=== PATIENT | male | born 1990 | race Caucasian/White ===

== ENCOUNTER 2025-04-23 03:40 | Emergency (ER) | payer SELFPAY ==
[2025-04-23 03:45] VITALS: BP 152/82
[2025-04-23 03:50] VITALS: BMI 32.9
--- NOTE | 2025-04-23 04:01 | ED.GENMED ---
History of Present Illness
General
Chief Complaint: Anxiety
Source: patient
Exam Limitations: none
Time Seen by Provider: 04/23/25 03:59
Nursing documentation reviewed up to this point in time: agreed with
History of Present Illness
History of Present Illness:
Note:
CHIEF COMPLAINT(S)
Anxiety
HISTORY OF PRESENT ILLNESS
The patient is a 35-year-old male who presented with anxiety and muscle cramps in his legs. The symptoms began after he was abruptly after he was awakened by his daughter crying during the night. He reports that he woke up feeling panicked, although
reassured by his that everything was fine and that his daughter was okay. He started to breath rapidly and feel panic symptoms and he experienced severe cramping in both legs, likely due to dehydration, as he noted, 'I think I need to drink
more.' The patient mentioned having consumed an iced tea, which he rarely drinks, around 3 or 4 PM the day before. He wonders if components such as caffeine or sugars could be contributing factors. The feeling of anxiety persisted, despite efforts
to relax and alleviate symptoms over a 10-minute period. He also recently completed a prednisone taper two days ago for what was diagnosed as eczema on his buttocks; the rash has since returned to its normal skin color. He notes an increasing trend
of anxiety over the past three years, attributed to stressors such as moving and financial concerns. This is the first time he has sought medical help for anxiety, and he has never been on medication for this condition. He describes no current chest
pain, palpitations, or dizziness but seeks an electrocardiogram for reassurance due to a history of a hiatal hernia diagnosed after an upper endoscopy three years ago which was diagnosed because he had chest pain. Patient denies suicidal and
homicidal ideation. Patient denies any thoughts of self-harm. Patient does not currently follow with a psychiatrist and does not take any medications.
SOCIAL DETERMINANTS AFFECTING HEALTH
The patient reports financial stress after a recent move, contributing to his anxiety. He is actively involved in a [employer] group which provides significant mental support.
General: Patient is well appearing and in no acute distress; non-toxic
Skin: Warm and dry, no rashes or lesions
Head: Normocephalic, atraumatic
Eyes: Sclera non-icteric. EOMs intact.
Cardiac: Regular rate and rhythm, no murmurs
Peripheral Vascular: No lower extremity swelling or edema
Pulm: Normal respiratory effort, no wheezes, rales, or rhonchi
Abdomen: No abdominal tenderness to palpation
Neuro: CN II-XII intact, no focal neurologic deficits.
Psychiatric: Appropriate mood and affect.
PLAN
- Perform blood tests to rule out metabolic causes such as electrolyte imbalances
- Conduct an electrocardiogram for cardiac reassurance
- Offer crisis team consultation for further psychiatric support, although the patient declined therapy
- Discussed the importance of follow-up with a primary care provider or psychiatrist as needed if symptoms persist or worsen
DIFFERENTIAL DIAGNOSIS
The Differential Diagnosis includes, in no particular order and is not limited to:
- Generalized Anxiety Disorder
- Adjustment Disorder with Anxiety
- Substance-Induced Anxiety Disorder (e.g., due to caffeine)
- Panic Disorder
- Hyperthyroidism
- Electrolyte Imbalance
- Hiatal Hernia
- Cardiac Arrhythmias
- Pheochromocytoma
- Medication Side Effects (e.g., prednisone-associated anxiety)
The patient is a 35-year-old male who presented with anxiety upon waking up in the middle of the night. He was awoken by his daughter crying which concerned him. He does have a history of increasing anxiety over the past few years due to financial
struggles however he reports that is never this severe before. Upon arriving to emergency department, his symptoms have been resolving and he has steadily felt less anxious. Patient had blood work done his CBC and CMP is unremarkable. CPK is
normal. Patient does note that he recently finished a course of prednisone and denies that he thinks this contributed to his anxiety past few days. Patient is never seen a psychiatrist for his symptoms. I did recommend follow-up with a
psychiatrist. Did offer crisis services the patient however patient is declining this at this time. Patient stable for discharge
Review of Systems
Review of Systems
All Other Systems: ROS reviewed and negative except as documented in HPI and ROS
Phy Exam
Physical Exam
Physical Exam:
see hpi
Course
Orders/Labs/Results
Orders:
Orders
04/23/25 04:04
EKG [Electrocardiogram (*1)] Urgent
Reason for Study: Palpitations
Other Reason for Exam: NOt having palpitations, feels a sense of panic,
04/23/25 04:05
EKG- Treatment ONCE
04/23/25 04:44
CPK [Creatine Phosphokinase] Urgent
Complete Blood Count/With Diff Urgent
Comprehensive Metabolic Panel Urgent
Abnormal Lab Results
04/23/25
04:44
MPV 11.0 H fL
(7.4-10.4)
Abs Immat Gran (auto) 0.1 H 10^3/uL
(0-0.05)
Immature Gran % 0.8 H %
(0-0.5)
Glucose 100 H mg/dl
(70-99)
AST 16 L U/L
(17-59)
04/23/25 04:44
04/23/25 04:44
Vital Signs
Initial and Last Documented VS:
Initial Vital Signs
Temp Pulse Resp BP Pulse Ox
97.9 F 70 18 152/82 100
04/23/25 03:45 04/23/25 03:45 04/23/25 03:45 04/23/25 03:45 04/23/25 03:45
Last Documented Vital Signs
Temp Pulse Resp BP Pulse Ox
97.9 F 55 13 132/84 97
04/23/25 03:45 04/23/25 06:15 04/23/25 06:15 04/23/25 06:00 04/23/25 06:15
*Critical Care Note
Total Time (30-74mins, 75-104mins- exclusive of procedures): Not Applicable
ED Attending Note
-
Portions of this chart may have been created with voice recognition software.� Occasional wrong word or��sound alike� substitutions may have occurred due to the inherent limitations of voice recognition software.
Discharge Plan
Departure
Patient Disposition: Home (Routine Discharge)
Date of Disposition: 04/23/25
Time of Disposition: 06:36
Patient with high blood pressure during this ER visit?: Yes
Condition: Good
Discharge Problem:
Anxiety, Adverse effect of prednisone
Instructions: Anxiety, Adult (DC), Prednisone, BLOOD PRESSURE
Referrals:
Mary Bruno MD [Family Provider, Internal Medicine]
Heidy Jane MD [Active, Psychiatry] - Call in 1-3 days for appt
Activity Restrictions/Additional Instructions:
As discussed, your blood work is unremarkable. Your EKG shows normal sinus rhythm with no concerning changes.
PLEASE RETURN EMERGENCY DEPARTMENT SHOULD YOU DEVELOP SUICIDAL OR HOMICIDAL IDEATIONS, CHEST PAIN, SHORTNESS OF BREATH, DIZZINESS, LIGHTHEADEDNESS, PALPITATIONS, THOUGHTS OF SELF-HARM, OR ANY OTHER SIGNS OR SYMPTOMS WORRISOME TO YOU
Interventions
Interventions:
*Risk Screen - Suicide Last Done: 04/23/25 03:50
*General Assessment Last Done: 04/23/25 03:50
*Neglect/Abuse Screening Last Done: 04/23/25 03:50
*ED- Fall Risk Assessment Last Done: 04/23/25 03:50
*ED COVID-19 Vaccine History Last Done: 04/23/25 03:50
ED-Psychological Assessment Last Done: 04/23/25 03:50
Discharge Date and Time
Print Language: CZECH
[2025-04-23 04:11] VITALS: BP 142/90
[2025-04-23 05:00] VITALS: BP 137/76
[2025-04-23 06:00] VITALS: BP 132/84
[2025-04-23 06:02] LABS: % Basophils 0.9 % (0-2); % Eosinophils 3.5 % (0-6); % Immature Granulocytes 0.8 % (0-0.5); % Lymphocytes 34.3 % (20.5-51.1); % Monocytes 7.7 % (1.7-9.3); % Neutrophils 52.8 % (42.2-75.2); Absolute Basophils 0.1 10^3/uL (0-0.2); Absolute Eosinophils 0.3 10^3/uL (0-0.7); Absolute Immature Granulocytes 0.1 10^3/uL (0-0.05); Absolute Lymphocytes 2.5 10^3/uL (1.2-3.4); Absolute Monocytes 0.6 10^3/uL (0.1-0.6); Absolute Neutrophils 3.9 10^3/uL (1.4-6.5); Hematocrit 44.4 % (39.0-52.0); Hemoglobin 15.5 g/dL (13.0-18.0); Mean Corp Hgb Conc. 34.9 g/dL (33.0-37.0); Mean Corpuscular Hgb 30.8 pg (27.0-31.0); Mean Corpuscular Volume 88.1 fL (80.0-94.0); Nucleated Red Blood Cells % 0 % (-); Platelet Count 194 10^3/uL (130-400); Red Blood Cell Count 5.04 10^6/uL (4.70-6.10); Red Cell Dist. Width 12.5 % (11.5-14.5); White Blood Cell Count 7.4 10^3/uL (4.8-10.8)
[2025-04-23 06:28] LABS: ALT (SGPT) 18 U/L (0-50); AST (SGOT) 16 U/L (17-59); Albumin 4.4 g/dl (3.5-5.0); Alkaline Phosphatase 55 U/L (38-126); Blood Urea Nitrogen 19 mg/dl (9-20); Calcium 9.5 mg/dl (8.4-10.2); Carbon Dioxide 28 mmol/L (22-30); Chloride 107 mmol/L (98-107); Creatine Phosphokinase 98 U/L (55-170); Estimated Creatinine Clearance > 125 ml/min; Glucose 100 mg/dl (70-99); Potassium 4.1 mmol/L (3.5-5.1); Sodium 142 mmol/L (135-145); Total Bilirubin 0.5 mg/dl (0.2-1.3); Total Protein 6.9 g/dl (6.3-8.2); eGFR > 60.00
== END 2025-04-23 07:00 | disposition home or self-care (01) ==
LOC: EMR 03:40
PROVIDERS: Physician Assistant; EMERGENCY PHYSICIAN Emergency Medicine; FAMILY PHYSICIAN Internal Medicine
DX: R00.2 Palpitations (principal); T38.0X5A Adverse effect of glucocorticoids and synthetic analogues, initial encounter; Y92.9 Unspecified place or not applicable; F41.9 Anxiety disorder, unspecified; Z59.86 Financial insecurity
CPT/HCPCS: 99283; 80053; 82550; 85025; 93005